=== PATIENT | female | born 1985 | race Caucasian/White ===

== ENCOUNTER 2016-08-07 19:49 | Emergency (ER) | payer MEDICARE, MEDICAID ==
[2016-08-07] MEDS ORDERED: predniSONE 20 MG TABLET PO STA (20:48)
[2016-08-07] MEDS ORDERED: AMOX/CLAV 875 MG/125 MG TABLET PO STA (20:48)
[2016-08-07] MEDS ORDERED: HYDROcod/ACET 5/325 Prepack 6 PO STA (20:48)
[2016-08-07] MEDS ORDERED: AMOX/CLAV 875 MG/125 MG TABLET PO ONE (20:58)
[2016-08-07] MEDS ORDERED: HYDROcod/ACET 5/325 Prepack 6 PO ONE (20:58)
[2016-08-07] MEDS ORDERED: predniSONE 20 MG TABLET ONE (20:59)
== END 2016-08-07 21:13 | disposition home or self-care (01) ==
DX: H66.015 Acute suppurative otitis media with spontaneous rupture of ear drum, recurrent, left ear (principal); F17.200 Nicotine dependence, unspecified, uncomplicated
CPT/HCPCS: 81025; 99283; A9270; J7512